=== PATIENT | female | born 1950 | race Caucasian/White ===

== ENCOUNTER 2017-06-17 10:24 | Emergency (ER) | payer BC, MEDICARE ==
[~2017-06-17] VITALS: Ht 162.6 cm; Wt 63.5 kg
[~2017-06-17 10:24] MED LIST: Adult Low Dose81 MG; B Complex #11 EACH; ESCI20; ESTR.1TPBW; LEVSOD100
== END 2017-06-17 12:07 | disposition home or self-care (01) ==
LOC: ER 10:24
DX: S60.222A Contusion of left hand, initial encounter (principal); Z79.899 Other long term (current) drug therapy; Z79.82 Long term (current) use of aspirin; Z90.710 Acquired absence of both cervix and uterus; Z87.891 Personal history of nicotine dependence; W22.8XXA Striking against or struck by other objects, initial encounter; Y93.01 Activity, walking, marching and hiking
CPT/HCPCS: 29125; 73110; 73130; 99283; L3917

== ENCOUNTER → 2020-02-09 | Outpatient (CLI) | payer BC, MEDICARE ==
[~2020-02-09] MED LIST changes: +Bactrim 400-801 EACH PO; +CEPH500 PO; +ESCI10 PO; +LOSA25 PO
== END | disposition home or self-care (01) ==
LOC: LAB 15:01 → LAB SHORT 15:01
DX: N95.2 Postmenopausal atrophic vaginitis (principal)
CPT/HCPCS: 87070; 87205

== ENCOUNTER 2024-04-01 10:03 | Day surgery (SDC) | payer BC ==
[~2024-04-01] VITALS: Ht 162.6 cm; Wt 59.3 kg
[~2024-04-01 10:03] MED LIST changes: +Balanced Salt Epinephrine Irrigation Solution 500 mL IR SCH; +CLOP75 PO; +EUTHYROX88 MC1 PO; +Lidocaine HCl/Pf 1% 5 ML VIAL XX SCH; +Moxifloxacin HCL 0.5 MG/0.1 ML 0.4MLSYR LEFTEYE SCH; +PHENYLEPHRINE\\TROPICAMIDE\\TETRACAINE OPHTHALMIC DILATING SOLN LEFTEYE PRN; +Povidone-Iodine 450 DROP/30 ML Solution LEFTEYE SCH; +Povidone-Iodine 450 DROP/30 ML Solution ONE; +Tetracaine HCl/Pf 0.5% Opth Soln 4 ml ONE
[2024-04-01] MEDS ORDERED: ESTRADIOL10 MCG VG (10:15)
--- NOTE | 2024-04-01 10:17 | NUR ---
04/01/24 Belle7 María Muniz AT 1015 PLEJUAN RET AT 1016
[2024-04-01] MEDS ORDERED: Midazolam HCl 1MG / ML 2ML Vial ONE (10:46)
[2024-04-01 11:25] VITALS: BP 146/68
== END 2024-04-01 11:38 | disposition home or self-care (01) ==
LOC: ORSCSDS 10:03
PROVIDERS: Student in an Organized Health Care Education/Training Program
PROC: 08RK3JZ Replacement of Left Lens with Synthetic Substitute, Percutaneous Approach (ICD-10-PCS; principal; 2024-04-01 11:30)
DX: H25.813 Combined forms of age-related cataract, bilateral (principal); E07.9 Disorder of thyroid, unspecified; Z86.73 Personal history of transient ischemic attack (TIA), and cerebral infarction without residual deficits; Z79.899 Other long term (current) drug therapy
CPT/HCPCS: J2250; V2632

== ENCOUNTER 2024-04-08 09:01 | Day surgery (SDC) | payer BC ==
[~2024-04-08] VITALS: Ht 162.6 cm; Wt 59.7 kg
[~2024-04-08 09:01] MED LIST changes: +ESTRADIOL10 MCG VG; -Moxifloxacin HCL 0.5 MG/0.1 ML 0.4MLSYR LEFTEYE SCH; +Moxifloxacin HCL 0.5 MG/0.1 ML 0.4MLSYR RIGHTEYE SCH; -PHENYLEPHRINE\\TROPICAMIDE\\TETRACAINE OPHTHALMIC DILATING SOLN LEFTEYE PRN; +PHENYLEPHRINE\\TROPICAMIDE\\TETRACAINE OPHTHALMIC DILATING SOLN RIGHTEYE PRN; -Povidone-Iodine 450 DROP/30 ML Solution LEFTEYE SCH; -Povidone-Iodine 450 DROP/30 ML Solution ONE; +Povidone-Iodine 450 DROP/30 ML Solution RIGHTEYE SCH; -Tetracaine HCl/Pf 0.5% Opth Soln 4 ml ONE
[2024-04-08] MEDS ORDERED: FentaNYL Citrate 50 MCG/ML 2 ML Injection ONE (09:45)
[2024-04-08] MEDS ORDERED: Midazolam HCl 1MG / ML 2ML Vial ONE (09:46)
--- NOTE | 2024-04-08 10:10 | NUR ---
04/08/24 1010 Judy Carroll PT REPORTED ATRIAL SEPTAL DEFECT- REPORTS CARDIOLGIST STATED IT WAS MINOR AND DID NOT REQUIRE INTERVENTION, RENNY DICKEY NOTIFIED OF THIS
[2024-04-08] MEDS ORDERED: Tetracaine HCl 0.5% Opth Soln 15 ml RIGHTEYE ONE (10:14)
[2024-04-08 10:35] VITALS: BP 137/79
== END 2024-04-08 10:43 | disposition home or self-care (01) ==
LOC: ORSCSDS 09:01
PROVIDERS: Student in an Organized Health Care Education/Training Program
PROC: 08RJ3JZ Replacement of Right Lens with Synthetic Substitute, Percutaneous Approach (ICD-10-PCS; principal; 2024-04-08 10:30)
DX: H25.811 Combined forms of age-related cataract, right eye (principal); Z96.1 Presence of intraocular lens; Z86.73 Personal history of transient ischemic attack (TIA), and cerebral infarction without residual deficits; Z79.899 Other long term (current) drug therapy
CPT/HCPCS: J2250; J3010; V2632